=== PATIENT | female | born 1995 | race Caucasian/White ===

== ENCOUNTER 2016-10-21 00:06 | Emergency (ER) | payer OTHER ==
[~2016-10-21] VITALS: Ht 160 cm; Wt 51.9 kg
[2016-10-21 02:27] VITALS: BP 119/70
[2016-10-22 10:35] LABS: TREPONEMA ANTIBODY NEGATIVE (NEGATIVE)
[2016-10-22 12:42] LABS: CHLAMYDIA TRACHOMATIS NEGATIVE; NEISSERIA GONORRHOEAE NEGATIVE
== END 2016-10-21 02:29 | disposition home or self-care (01) ==
LOC: EDBD 00:06 → EME 00:06
PROVIDERS: Emergency Medicine
DX: T74.21XA Adult sexual abuse, confirmed, initial encounter (principal); F17.200 Nicotine dependence, unspecified, uncomplicated
CPT/HCPCS: 84702; 86780; 87491; 87591; 99281; 99285; J0696